=== PATIENT | male | born 1990 | race American Indian/Alaskan Native ===

== ENCOUNTER 2017-05-16 17:46 | Emergency (ER) | payer SELFPAY ==
[2017-05-16 19:03] LABS: Basophils % (Auto) 0.4 % (0.0-1.8); Eosinophils % (Auto) 2.9 % (0.0-4.3); Hematocrit 46.2 % (35.5-45.6); Hemoglobin 15.1 gm/dl (11.8-15.2); Mean Corpuscular HGB Conc 33 % (32-34); Mean Corpuscular Hemoglobin 29 pg (28-32); Mean Corpuscular Volume 89 fl (84-94); Red Blood Count 5.17 M/mm3 (3.65-5.03); Red Cell Distribution Width 14.4 % (13.2-15.2)
[2017-05-16 19:20] LABS: Alanine Aminotransferase 10 units/L (7-56); Albumin 3.8 g/dL (3.9-5); Albumin/Globulin Ratio 0.9 %; Alkaline Phosphatase 122 units/L (35-129); Anion Gap 17 mmol/L; BUN/Creatinine Ratio 13.33; Blood Urea Nitrogen 12 mg/dL (9-20); Calcium 9.2 mg/dL (8.4-10.2); Carbon Dioxide 26 mmol/L (22-30); Glucose 81 mg/dL (75-100); Lipase 36 units/L (13-60); Potassium 3.8 mmol/L (3.6-5.0); Sodium 141 mmol/L (137-145); Total Protein 7.9 g/dL (6.3-8.2)
[2017-05-16 20:01] LABS: Platelet Count 87 K/mm3 (140-440)
[2017-05-16] MEDS ORDERED: ZOFRAN IV ONE (23:36)
[2017-05-16] MEDS ORDERED: MORPHINE IV ONE (23:36)
[2017-05-16] MEDS ORDERED: NACL 0.9% 1000 ML 1,000 ML IV ONE (23:36)
[2017-05-16 23:40] VITALS: BP 138/73
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
[2017-05-16] MEDS ORDERED: NACL ONE (23:57)
--- NOTE | 2017-05-17 01:02 | Cat Scan Report ---
FINAL REPORT PROCEDURE: CT ABDOMEN PELVIS W CON TECHNIQUE: Computerized axial tomography of the abdomen and pelvis was performed after the IV injection of iodinated nonionic contrast. HISTORY: RT INGUINAL MASS, ABD PAIN, COMPARISON: No prior studies are available for comparison. FINDINGS: Visualized lower thorax: No significant abnormality. Liver: Normal size and attenuation. Spleen: Normal size and attenuation. Gallbladder and biliary system: Normal. Pancreas: Normal. Adrenals: Normal. Kidneys: Normal. GI tract: There is a right inguinal hernia containing a loop of small bowel. There is no incarceration or obstruction.. The stomach and colon and appendix are normal. Lymph nodes and mesentery: Normal. Vasculature: Normal. Bladder: Normal. Reproductive organs: Normal. Peritoneum: No free fluid. Musculoskeletal structures: No significant abnormality. Other: There is a large loculated fluid collection in the right hemiscrotum measuring 8.4 x 8.6 x 10 centimeters. This could be a hydrocele. Possibility of cystic mass or abscess not excluded.. IMPRESSION: There is a right inguinal hernia containing a loop of small bowel. There is no incarceration or obstruction.. The stomach and colon and appendix are normal. There is a large loculated fluid collection in the right hemiscrotum measuring 8.4 x 8.6 x 10 centimeters. This could be a hydrocele. Possibility of cystic mass or abscess not excluded..
--- NOTE | 2017-05-17 02:17 | Ultrasound Report ---
FINAL REPORT PROCEDURE: US TESTICULAR DOPPLER COMP TECHNIQUE: Real-time reyes-scale and color flow Doppler sonography in multiple planes of the scrotum, testicles, and epididymes was performed. Velocity spectral waveform analysis Doppler imaging of the arterial inflow and venous outflow of the testicles was performed with image documentation. CPT 29660 and 32375 HISTORY: rt scrotal mass COMPARISON: No prior studies are available for comparison. FINDINGS: RIGHT TESTICLE: The right testicle is not discretely seen. The scrotum is filled with a large cystic mass containing septations. Mass measures approximately 12 centimeters in greatest diameter. There are loops of small bowel indicating hernia. There is no specific evidence of obstruction. LEFT TESTICLE Size: 4.1 x 2.1 x 2.0 cm . Appearance: Normal size and echotexture . Arterial blood flow: Normal spectral waveforms, flow velocities and color flow images.. Venous blood flow: Normal spectral waveforms and color flow images. Leftepididymis: Normal size and echotexture . Hydrocele: None . IMPRESSION: Normal left testicle. The right testicle is not discretely seen. The right nirmal scrotum is filled with a large cystic mass containing septations. Mass measures approximately 12 centimeters in greatest diameter. This could be a complex hydrocele. Cystic tumor not excluded. Abscess not excluded. There are loops of small bowel in the right hemiscrotum indicating right inguinal hernia. There is no specific evidence of obstruction.
== END 2017-05-17 03:56 | disposition home or self-care (01) ==
LOC: ED 17:46
DX: K40.90 Unilateral inguinal hernia, without obstruction or gangrene, not specified as recurrent (principal); N50.9 Disorder of male genital organs, unspecified; Z88.0 Allergy status to penicillin
CPT/HCPCS: 36415; 74177; 80053; 83690; 85025; 93975; 96361; 96374; 96375; 99284; J2270; J2405; J7030; Q9967